=== PATIENT | male | born 1940 | race Caucasian/White ===

== ENCOUNTER 2024-04-17 13:46 | Inpatient (IN) | payer MEDICARE ==
[~2024-04-17] VITALS: Ht 170.2 cm; Wt 68.7 kg
[~2024-04-17 13:46] MED LIST: AMLODIPINE BESY10 MG PO; ATORVASTATIN CA20 MG PO; Atarax10 MG PO; BUSPIRONE HCL7.5 M6 PO; ESCI20 PO; FAMO20 PO; FURO20 PO; GABA100 PO; KLOR-CON 1010 ME9 PO; METOPROLOL SUCC25 MG PO; OXYC10TA19 PO; PLAVIX75 MG PO; PROZAC2010 PO; TRAZ100 PO
[2024-04-17 14:33] LABS: BASOPHILS ABSOLUTE AUTO 0.05 K/mm3 (0.00-0.23); BASOPHILS PERCENT AUTO 1 % (0-2); EOSINOPHILS ABSOLUTE AUTO 0.19 K/mm3 (0.00-0.68); EOSINOPHILS PERCENT AUTO 2 % (0-6); Hematocrit 42.3 % (37.0-53.0); Hemoglobin 13.6 g/dL (13.5-17.5); IMMATURE GRAN ABSOLUTE AUTO 0.03 K/mm3 (0.00-0.10); IMMATURE GRAN PERCENT AUTO 0 % (0-1); LYMPHOCYTES ABSOLUTE AUTO 2.01 K/mm3 (0.84-5.20); LYMPHOCYTES PERCENT AUTO 26 % (21-46); MONOCYTES ABSOLUTE AUTO 0.73 K/mm3 (0.16-1.47); MONOCYTES PERCENT AUTO 9 % (4-13); Mean Corpuscular HGB 30.2 pg (26.0-34.0); Mean Corpuscular HGB Conc 32.2 g/dL (31.5-36.5); Mean Corpuscular Volume 94 fL (80-100); Mean Platelet Volume 9.7 fL (9.1-12.4); NEUTROPHILS ABSOLUTE AUTO 4.79 K/mm3 (1.96-9.15); NEUTROPHILS PERCENT AUTO 61 % (41-73); Platelet Count 153 K/mm3 (150-400); RDW Coefficient Variation 14.5 % (11.7-14.2); RDW Standard Deviation 49.9 fL (35.1-46.3)
[2024-04-17 15:01] LABS: Albumin, Blood 3.4 g/dL (3.4-5.0); Albumin/Globulin Ratio 0.9 (0.8-1.8); Bilirubin, Total 0.5 mg/dL (0.1-1.0); Bun/Creatinine Ratio 21.2 (12.0-20.0); Calcium, Blood 8.2 mg/dL (8.5-10.1); Creatinine, Blood 1.04 mg/dL (0.60-1.20); Globulin, Blood 3.6 g/dL (2.2-4.0); Potassium, Blood 4.7 mmol/L (3.5-5.5)
[2024-04-17 17:56] LABS: Magnesium, Blood 2.1 mg/dL (1.6-2.4); Phosphorus, Blood 3.4 mg/dL (2.5-4.9)
[2024-04-17 18:53] LABS: International Normalized Ratio 1.02; Prothrombin Time Results 10.9 Sec (9.7-11.5)
[2024-04-17 19:43] LABS: Base Excess Venous 8.3 mmol/L; Bicarbonate Venous 29.7 mmol/L (24.0-30.0); PCO2 Venous 69.9 mmHg (38-42)
[2024-04-17] MEDS ORDERED: Ipratropium Bromide INH 0.02% 0.5 mg/2.5ML Vial INH SCH (19:45)
[2024-04-17] MEDS ORDERED: Albuterol 2.5 MG/3 ML VIAL INH SCH (19:45)
[2024-04-17] MEDS ORDERED: Bisacodyl 10 MG Supp PR PRN (20:15)
[2024-04-17] MEDS ORDERED: Acetaminophen 325 MG TABLET PO PRN (20:15)
[2024-04-17] MEDS ORDERED: Magnesium Hydroxide Conc 10 ML UDC PO PRN (20:20)
[2024-04-17] MEDS ORDERED: FLU VACC TS2024-25(6MOS UP)/PF 45 MCG/0.5 ML SYRINGE IM ONE (20:20)
[2024-04-17] MEDS ORDERED: TraZODone HCl 50 MG Tab PO PRN (20:25)
[2024-04-17] MEDS ORDERED: OxyCODONE HCL 5 MG TAB PO PRN (20:30)
[2024-04-17] MEDS ORDERED: LORazepam 2 MG/ML 1ML Injection IV ONE (21:00)
[2024-04-17] MEDS ORDERED: Docusate Sodium 100 MG Cap PO SCH (21:00)
[2024-04-17] MEDS ORDERED: Sennosides 8.6 MG Tab PO SCH (21:00)
[2024-04-17] MEDS ORDERED: Famotidine 20 MG Tab PO SCH (21:00)
[2024-04-17] MEDS ORDERED: LISI20 PO (22:54)
[2024-04-17 23:24] LABS: Base Excess Venous 10.7 mmol/L; PCO2 Venous 61.9 mmHg (38-42); pH Blood Venous 7.37 (7.34-7.37)
[2024-04-18] VITALS (10 sets, daily range): BP systolic 105–151; BP diastolic 45–89
--- NOTE | 2024-04-18 03:57 | NUR ---
AT MIDNIGHT PT REMOVED BIPAP MASK AND REQUESTED FOOD STATING "I HAVENT EATEN ALL DAY." PT ALSO C/O BACK PAIN. PT GIVEN SNACK AND PAIN MEDICATIONS FOR BACK PAIN. AT 0045 PT AMENABLE TO WEARING BIPAP MASK NOW. AT 0400 PT STILL WEARING BIPAP AND IS SLEEPING AND APPEARS RELAXED. VISIBLE RESPIRATIONS SEEN WNL.
--- NOTE | 2024-04-18 05:29 | NUR ---
PT WORE BIPAP FROM 44 TO 444 WHEN HE WOKE UP AND REMOVED MASK. PT WAS IRRITABLE UPON WAKING. PT O2 SAT STARTED TO DECLINE ONCE MASK WAS REMOVED PT PLACED ON 4L O2 BY IA AND IS NOW RESTING AGAIN. PT DECLINES TO WEAK MASK AT THIS TIME STATING "I NEED A BREAK FROM IT."
[2024-04-18 06:40] LABS: BASOPHILS ABSOLUTE AUTO 0.04 K/mm3 (0.00-0.23); BASOPHILS PERCENT AUTO 1 % (0-2); EOSINOPHILS PERCENT AUTO 3 % (0-6); Hemoglobin 12.9 g/dL (13.5-17.5); IMMATURE GRAN ABSOLUTE AUTO 0.02 K/mm3 (0.00-0.10); IMMATURE GRAN PERCENT AUTO 0 % (0-1); LYMPHOCYTES ABSOLUTE AUTO 1.31 K/mm3 (0.84-5.20); LYMPHOCYTES PERCENT AUTO 20 % (21-46); MONOCYTES ABSOLUTE AUTO 0.65 K/mm3 (0.16-1.47); MONOCYTES PERCENT AUTO 10 % (4-13); Mean Corpuscular HGB 30.9 pg (26.0-34.0); Mean Corpuscular HGB Conc 33.1 g/dL (31.5-36.5); Mean Corpuscular Volume 94 fL (80-100); Mean Platelet Volume 9.1 fL (9.1-12.4); NEUTROPHILS ABSOLUTE AUTO 4.21 K/mm3 (1.96-9.15); NEUTROPHILS PERCENT AUTO 66 % (41-73); Platelet Count 144 K/mm3 (150-400); RDW Coefficient Variation 14.6 % (11.7-14.2); RDW Standard Deviation 50.4 fL (35.1-46.3); Red Blood Cell Count 4.17 M/mm3 (4.30-5.90); White Blood Cell Count 6.43 K/mm3 (4.00-11.30)
--- NOTE | 2024-04-18 06:57 | NUR ---
PT ON BIPAP FOR 4 HOURS THIS SHIFT AND TOLERATED WELL WHILE SLEEPING. PT NOW ON 4L O2 WHILE SLEEPING PT DECLINING TO WEAR BIPAP MASK AGAIN STATING "I WANT A BREAK FROM IT." PT ON ROOM AIR WHILE SLEEPING HAD O2 SATS OF 86% AND WAS PLACED ON 4L O2 TO BRING SATS TO 95%. PT HAD GOOD RELIEF OF BACK PAIN WITH OXYCODONE. PT ABLE TO USE CALL LIGHT AND MAKE NEEDS KNOWN. PT IS CURRENTLY RESISTANT TO MORE INVOLVED CARE OR MEDICATIONS. PT WAS GIVEN FOOD LAST NIGHT AFTER ADMIT AND THAT DID IMPROVE MOOD FOR A SHORT DURATION. PT IS ABLE TO ANSWER ORIENTATION QUESTIONS APPROPRIATELY BUT SEEMS TO HAVE AN ODD AFFECT. PT IS [place] AND WITHOUT HEARING AIDS AT THIS TIME. CAREGIVER TO BRING IN MED LIST TO COMPLETE.
[2024-04-18 07:11] LABS: Albumin, Blood 3.2 g/dL (3.4-5.0); Anion Gap 9 mmol/L (3-11); Blood Urea Nitrogen 21 mg/dL (8-24); Bun/Creatinine Ratio 21.4 (12.0-20.0); CO2, Blood 31 mmol/L (21-32); Calcium, Blood 8.2 mg/dL (8.5-10.1); Chloride, Blood 107 mmol/L (98-108); Creatinine, Blood 0.98 mg/dL (0.60-1.20); Glomerular Filtration Rate 76 (60-); Glucose, Blood 114 mg/dL (70-99); Phosphorus, Blood 4.2 mg/dL (2.5-4.9); Potassium, Blood 4.2 mmol/L (3.5-5.5); Sodium, Blood 143 mmol/L (136-145)
--- NOTE | 2024-04-18 07:38 | NUR ---
ASSUMED CARE AND RECEIVED REPORT AT 0700. PT RESTING COMFORTABLY IN BED. INITIALLY ON 4L NC AT 97%, TITRATED DOWN TO 2L NC AND NOW AT 95%. VITALS STABLE.
[2024-04-18] MEDS ORDERED: Citalopram Hydrobromide 20 MG Tab PO SCH ×2 (09:00)
[2024-04-18] MEDS ORDERED: Metoprolol Succinate 25 MG TABCR PO SCH ×2 (09:00)
[2024-04-18] MEDS ORDERED: AmLODIPine Besylate 5 MG Tab PO SCH ×2 (09:00)
[2024-04-18] MEDS ORDERED: Atorvastatin 40 MG Tab PO SCH (09:00)
[2024-04-18] MEDS ORDERED: Clopidogrel Bisulfate 75 MG Tab PO SCH (09:00)
[2024-04-18] MEDS ORDERED: Furosemide 40 MG Tab PO SCH ×2 (09:00)
[2024-04-18] MEDS ORDERED: Enoxaparin 40 MG/0.4 ML SYR SC SCH (09:00)
[2024-04-18] MEDS ORDERED: Metoprolol Tartrate 1 MG/ML 5 ML VIAL IV ONE (14:30)
[2024-04-18] MEDS ORDERED: Metoprolol Tartrate 5 ML IV ONE (14:32)
[2024-04-18] MEDS ORDERED: MELATONIN5 M1 PO (14:55)
[2024-04-18] MEDS ORDERED: Metoprolol Tartrate 25 MG Tab PO ONE (15:20)
--- NOTE | 2024-04-18 17:10 | NUR ---
INFORMED BY TELEMETRY THAT PATIENT WAS IN SUSTAINED TRIGEMINY. NOTIFIED DR LEDESMA. ORDERS FOLLOWED AND 2.5MG OF METOPROLOL TARTRATE GIVEN VIA IV PUSH. PT CONVERTED BACK TO NORMAL SINUS RHYTHM FOR A FEW SECONDS, BUT CONVERTED BACK INTO TRIGEMINY. DR LEDESMA NOTIFIED AND ORDERED 12.5MG METOPROLOL TARTRATE PO. PT REMAINS IN TRIGEMINY AT THIS TIME. WILL CONTINUE TO MONITOR.
--- NOTE | 2024-04-18 18:15 | NUR ---
SHIFT SUMMARY PT WAS ORIENTED THROUGHOUT SHIFT, BUT WAS VERY TIRED AND SPENT MOST OF THE DAY RESTING COMFORTABLY IN BED. PT VERBALIZED NEEDS AND OBEYS COMMANDS. PT WAS TITRATED DOWN ON OXYGEN AND TOLERATES ROOM AIR WHILE AWAKE WITH SATS IN THE 90'S, BUT WILL DESAT WHEN ASLEEP TO HIGH 80'S. PT WENT FROM RA AT TIMES TO 2L NC AT TIMES. PT MEDICATED FOR CHRONIC LOWER BACK PAIN PER SEP. SEE PREVIOUS NOTE REGARDING TRIGEMINY. PT IS NOT IN BIGEMINY, BUT IS ASYMPTOMATIC. CONTINUE TO MONITOR PER DR LEDESMA. CAREGIVER CAME BY THROUGHOUT THE DAY, SUPPLIED A MED LIST. SHE STATES THAT HE HASN'T BEEN SLEEPING WELL LATELY AND HAS BEEN HAVING TO SLEEP IN HIS RECLINER AT HOME. SHE STATES HE DOES NOT USE OXYGEN AT HOME BUT DOES USE BREATHE RIGHT STRIPS. WILL CONTINUE TO MONITOR AND GIVE REPORT TO ONCOMING RN.
[2024-04-19 01:06] VITALS: BP 126/66
[2024-04-19 04:14] VITALS: BP 132/66
[2024-04-19 04:53] LABS: Calcium, Blood 8.5 mg/dL (8.5-10.1); Potassium, Blood 4.5 mmol/L (3.5-5.5)
--- NOTE | 2024-04-19 06:21 | NUR ---
PT MEDICATED FOR 8 BACK PAIN, SEE SEP.
--- NOTE | 2024-04-19 06:45 | NUR ---
PT STABLE THROUGHOUT THE NIGHT. VITAL SIGNS REMAIN STABLE. PT REMAINS IN BIGEMINY WITH OCCASSIONAL TRIGEMENY RHYTHM. NO C/O CP OR SOB. PT REMAINS ON 2L O2 AND IS SATING WELL. PT HAS BEEN MEDICATED FOR BACK PAIN X2 WITH OXYCODE. PT CONTINUES TO DECLINE TO WEAR BIPAP. PT IS AOX4 WITH ODD AFFECT AND FORGETFULNESS. PT IS [place] W/O HEARING AIDS AT THIS TIME. PT WAS ABLE TO STAND FOR WEIGHT THIS AM AND APPEARED STEADY, NO C/O DIZZINESS OR LIGHTHEADEDNESS.
--- NOTE | 2024-04-19 07:00 | NUR ---
ASSUMED CARE AT 0700. RECEIVED REPORT FROM RECREATION AIDE RN. PT RESTING COMFORTABLY IN BED, VITALS STABLE,
[2024-04-19 07:31] VITALS: BP 122/56
--- NOTE | 2024-04-19 10:15 | NUR ---
PT BECOMING INCREASINGLY CONFUSED, DOES NOT KNOW WHY IS HE HERE, DOESN'T REMEMBER HOW LONG HE HAS BEEN HERE AND WANTS TO GO HOME. GO HOME. STATES THAT HE DOESN'T FEEL LIKE HE CAN TRUST ANYONE AND THAT HOSPITAL STAFF IS PLAYING GAMES WITH HIM. THIS RN REORIENTED HIM TO SITUATION, TIME, PLAN OF CARE, AND ASSURED HIM THAT STAFF WERE ALL WORKING TOWARDS THE GOAL OF IMPROVING HIS CARDIAC AND RESPIRATORY FUNCTION SO THAT HE MAY RETURN HOME SAFELY.
[2024-04-19 11:44] VITALS: BP 120/58
--- NOTE | 2024-04-19 12:39 | NUR ---
Jeep Mechanic Dr. Richard at the bedside. States that he is increasing the pt's beta jolly due to persistent bigeminy/trigeminy. States as long as pt is asymptomatic, no contraindication for pt to have activity.
[2024-04-19] MEDS ORDERED: Furosemide 20 MG Tab PO ONE (14:00)
[2024-04-19 17:00] VITALS: BP 108/62
[2024-04-19] MEDS ORDERED: Metoprolol Succinate 50 MG TABCR PO SCH (17:00)
--- NOTE | 2024-04-19 19:15 | NUR ---
SHIFT SUMMARY PT ALERT AND ORIENTED TO SELF AND PLACE AT ALL TIMES, BUT ORIENTATION TO SITUATION AND TIME WAXED AND WANED. PT BECAME AGITATED VARIOUS TIMES THROUGHOUT THE DAY AND EXPRESSED HIS DESIRE TO LEAVE AND GO HOME. SPOKE WITH SON ON THE PHONE AND HE BELIEVES HIS FATHER MAY BE GETTING DEMENTIA AND HAS BECOME INCREASINGLY MORE FORGETFUL AND AGITATED OVER THE LAST FEW MONTHS. DR LAWSON ORDERED A MENTAL EVAL WITH OCCUPATIONAL THERAPY TO BE COMPLETED TOMORROW. OVERNIGHT SLEEP STUDY TO BE PERFORMED TONIGHT TO DETERMINE NEED FOR CPAP AT HOME. HOME O2 EVAL COMPLETED TODAY AND RT IS RECOMMENDING 2L AT REST AT HOME. PT REQUESTED PAIN MEDICATION ONE TIME DURING THIS SHIFT FOR CHRONIC LOWER BACK PAIN AND WAS TREATED PER SEP.
[2024-04-19 20:45] VITALS: BP 120/58
--- NOTE | 2024-04-19 22:53 | NUR ---
TRANSFER OF CARE PATIENT HAD CALLED AND ASKED FOR PAIN MEDICATION STATING HIS BACK WAS ACHING AND PAINFUL AT 10/10 PAIN. THIS RN ATTEMPTED TO GIVE THE PATIENT TYLENOL AND TRAZADONE TO SEE IF IT WOULD HELP HIM RELAX AND FALL ASLEEP. PATIENT CLAIMED THAT HE IS UNABLE TO TAKE TYLENOL IT MAKES HIM SICK AND THAT HE WANTED HIS OXYCODONE. THIS RN TRIED TOOK THE TYLENOL AWAY AND TO EXPLAIN THAT THE PATIENT HAD ALREADY RECEIVED THE OXYCODONE THIS EVENING AND THAT IT WOULD BE SEVERAL HOURS BEFORE IT COULD BE GIVEN AGAIN. THE PATIENT SAID THAT THE OXYCODONE ONLY LASTS HALF AN HOUR AND DEMANDED TO HAVE IT AGAIN. THIS RN AGAIN EXPLAINED THAT SHE HAD TO FOLLOW DR'S ORDERS AND THAT IT WAS NOT POSSIBLE FOR HIM TO HAVE THE OXYCODONE. THE PATIENT THEN DEMANDED TO SPEAK WITH THE DOCTOR OR A DIFFERENT NURSE AND TOOK THE TRAZADONE. IT RISK AND ASSURANCE SENIOR MANAGER SAIGE NOTIFIED AND PATIENT REQUESTED TO HAVE A DIFFERENT NURSE CARING FOR HIM. REPORT GIVEN TO REESE BECK FOR ASSUMPTION OF CARE.
--- NOTE | 2024-04-20 00:50 | NUR ---
ASSUMED CARE OF PT PARTIALLY INTO SHIFT. SLEEP STUDY IN PROGRESS.
[2024-04-20 05:03] VITALS: BP 124/56
[2024-04-20] MEDS ORDERED: Torsemide 10 MG TAB PO SCH (06:00)
--- NOTE | 2024-04-20 06:11 | NUR ---
SHIFT SUMMARY NEURO: A/OX4. MOVES ALL EXTREMETIES. PSYCHOSOCIAL CONCERNS. CARDIAC: HR TRENDING TOWARS 70'S. EKG COMPLETED. BLE EDEMA. LUNGS: ON 2L NC THROUGHOUT THE NIGHT. SLEEP STUDY COMPLETED. PT EXPRESSES CARE CONCERNS WITH STAFF. RN AND PT DISCUSSED THERAPEUTIC COMMUNICATION AND CONFLICT RESOLUTION. PT AGREEABLE AT THIS TIME.
[2024-04-20 07:50] VITALS: BP 134/53
--- NOTE | 2024-04-20 08:30 | NUR ---
PATIENT COMMUNICATION WITTNESSED AT A 2ND RN FOR THE AMA PAPERWORK. PT REFUSED TO SIGN. IV REMOVED FROM R HAND.
--- NOTE | 2024-04-20 08:59 | NUR ---
THIS RN WAS NOTIFIED BY BREAK NURSE THAT PT LEFT AMA AT APPROX 0830.
--- NOTE | 2024-04-20 09:00 | NUR ---
IN HALLWAY WHEN HEARD PT YELLING AT DR. LAWSON WHO WAS IN ROOM WITH PT. PT STATING IS LEAVING BECAUSE "NO BODY IS DOING ANYTHING". ATTEMPTED TO SPEAK WITH PT, WHO THEN CONTINUED TO YELL AT THIS RN DEMANDING HIS BELONGINGS. AMA PAPERWORK EXPLAINED TO PT, REFUSED TO SIGN. STATES MULTIPLE TIMES "I'M NOT SIGNING YOUR PAPERWORK BECAUSE YOU DIDN'T HELP ME". VERBALIZES UNDERSTANDING RISKS OF LEAVING INCLUDING POSSIBLE , STATES WILL GO SOMEWHERE WHERE THEY KNOW SOMETHING. PERSONAL CELL PHONE GIVEN TO PT. OBSERVED PT ON PHONE WITH CAREGIVER STATING HE WAS LEAVING. A FEW MINUTES LATER WHILE PT STILL IN ROOM CAREGIVER CALLS. EXPLAINED AMA PROCESS AND THAT WERE UNABLE TO HOLD PATIENT AGAINST HIS WILL. CAREGIVER CONCERNED NOT AT BASELINE. ASKED CAREGIVER TO COME IN TO ATTEMPT TO DESCALATE, BLOWER FEEDER DYED RAW STOCK KAE STATES SHE IS ON HER WAY TO [place] AND CANNOT COME IN. WHILE STILL ON PHONE WITH JUSTUS SON CALLS AND SPEAKS TO RELIEF INSTALLATIONS INSPECTOR WHO ALSO EXPLAINS AMA PROCESS. PT DRESSES SELF AND AMBULATES FROM UNIT WITH PERSONAL BELONGINGS WITH STEADY GAIT. NURSING CREATIVE CONSULTANT UPDATED.
[2024-04-20] MEDS ORDERED: NEURONTIN300 MG PO (22:38)
[2024-04-20] MEDS ORDERED: GABA100 PO (22:38)
[2024-04-20] MEDS ORDERED: PROZAC2010 (23:24)
[2024-04-20] MEDS ORDERED: NEURONTIN300 MG (23:24)
[2024-04-20] MEDS ORDERED: KLOR-CON 1010 ME9 (23:24)
[2024-04-21] MEDS ORDERED: Torsemide 20 MG TAB PO SCH (09:00)
== END 2024-04-20 09:00 | disposition left against medical advice (07) | DRG 189 ==
LOC: ER 13:46 → PCU 20:14
PROVIDERS: Emergency Medicine; Family Medicine; Internal Medicine; Student in an Organized Health Care Education/Training Program; ADMIT Student in an Organized Health Care Education/Training Program
PROC: 5A09357 Assistance with Respiratory Ventilation, Less than 24 Consecutive Hours, Continuous Positive Airway Pressure (ICD-10-PCS; principal; 2024-04-17)
DX: J96.01 Acute respiratory failure with hypoxia (principal); I44.0 Atrioventricular block, first degree; J96.02 Acute respiratory failure with hypercapnia; I25.10 Atherosclerotic heart disease of native coronary artery without angina pectoris; G89.29 Other chronic pain; M54.9 Dorsalgia, unspecified; Z95.2 Presence of prosthetic heart valve; I10 Essential (primary) hypertension; Z88.2 Allergy status to sulfonamides; Z88.0 Allergy status to penicillin; Z95.5 Presence of coronary angioplasty implant and graft; E78.5 Hyperlipidemia, unspecified; E66.9 Obesity, unspecified; Z68.38 Body mass index [BMI] 38.0-38.9, adult; Z87.891 Personal history of nicotine dependence; Z79.899 Other long term (current) drug therapy; Z79.02 Long term (current) use of antithrombotics/antiplatelets
CPT/HCPCS: 36415; 71046; 80048; 80053; 80069; 82330; 82803; 83735; 83880; 83970; 84100; 84484; 85025; 85610; 93005; 93010; 93306; 94644; 94660; 94664; 94761; 94762; 99285-25; A9270; J1650; J2060

== ENCOUNTER 2024-04-20 14:27 | Inpatient (IN) | payer MEDICARE ==
[~2024-04-20] VITALS: Ht 203.2 cm; Wt 99.8 kg
[~2024-04-20 14:27] MED LIST changes: +LISI20 PO; +MELATONIN5 M1 PO
[2024-04-20 15:06] LABS: BASOPHILS ABSOLUTE AUTO 0.04 K/mm3 (0.00-0.23); BASOPHILS PERCENT AUTO 0 % (0-2); EOSINOPHILS ABSOLUTE AUTO 0.03 K/mm3 (0.00-0.68); EOSINOPHILS PERCENT AUTO 0 % (0-6); Hematocrit 38.8 % (37.0-53.0); IMMATURE GRAN ABSOLUTE AUTO 0.03 K/mm3 (0.00-0.10); IMMATURE GRAN PERCENT AUTO 0 % (0-1); LYMPHOCYTES PERCENT AUTO 11 % (21-46); MONOCYTES PERCENT AUTO 9 % (4-13); Mean Corpuscular HGB 30.7 pg (26.0-34.0); Mean Corpuscular HGB Conc 33.5 g/dL (31.5-36.5); Mean Corpuscular Volume 92 fL (80-100); Mean Platelet Volume 9.7 fL (9.1-12.4); NEUTROPHILS ABSOLUTE AUTO 8.15 K/mm3 (1.96-9.15); NEUTROPHILS PERCENT AUTO 80 % (41-73); Platelet Count 148 K/mm3 (150-400); RDW Coefficient Variation 13.8 % (11.7-14.2); RDW Standard Deviation 46.9 fL (35.1-46.3); Red Blood Cell Count 4.23 M/mm3 (4.30-5.90); White Blood Cell Count 10.25 K/mm3 (4.00-11.30)
[2024-04-20 15:08] LABS: Base Excess Venous 14.7 mmol/L; Bicarbonate Venous 35.3 mmol/L (24.0-30.0); PCO2 Venous 59.3 mmHg (38-42); pH Blood Venous 7.43 (7.34-7.37)
[2024-04-20 15:28] LABS: Albumin, Blood 3.5 g/dL (3.4-5.0); Albumin/Globulin Ratio 0.9 (0.8-1.8); Bilirubin, Total 0.8 mg/dL (0.1-1.0); Bun/Creatinine Ratio 19.5 (12.0-20.0); Calcium, Blood 8.7 mg/dL (8.5-10.1); Creatinine, Blood 1.18 mg/dL (0.60-1.20); Globulin, Blood 3.7 g/dL (2.2-4.0); Potassium, Blood 3.9 mmol/L (3.5-5.5); Total Protein, Blood 7.2 g/dL (6.4-8.2)
[2024-04-20] MEDS ORDERED: Acetaminophen 500 MG Tab PO PRN (16:10)
[2024-04-20] MEDS ORDERED: FLU VACC TS2024-25(6MOS UP)/PF 45 MCG/0.5 ML SYRINGE IM SCH (16:10)
[2024-04-20] MEDS ORDERED: Polyethylene Glycol 3350 17 gm PO PRN (16:10)
[2024-04-20] MEDS ORDERED: OxyCODONE HCL 5 MG TAB PO PRN ×2 (16:10→19:45)
[2024-04-20] MEDS ORDERED: Haloperidol Lactate Inj. 5 MG/ML Injection IM ONE (18:40)
[2024-04-20] MEDS ORDERED: QUEtiapine Fumarate 25 MG Tab PO PRN (19:45)
[2024-04-20] MEDS ORDERED: Metoprolol Succinate 50 MG TABCR PO SCH (21:00)
[2024-04-20] MEDS ORDERED: Docusate Sodium/Senna 1 Tab PO SCH (21:00)
[2024-04-20 21:26] VITALS: BP 126/53
[2024-04-20] MEDS ORDERED: GABA100 PO (22:38)
[2024-04-20] MEDS ORDERED: NEURONTIN300 MG PO (22:38)
[2024-04-20] MEDS ORDERED: PROZAC2010 PO (22:39)
[2024-04-20] MEDS ORDERED: BUSPIRONE HCL7.5 M6 PO (22:40)
[2024-04-20] MEDS ORDERED: PLAVIX75 MG PO (23:24)
[2024-04-20] MEDS ORDERED: NEURONTIN300 MG (23:24)
[2024-04-20] MEDS ORDERED: PROZAC2010 (23:24)
[2024-04-20] MEDS ORDERED: KLOR-CON 1010 ME9 (23:24)
[2024-04-21 03:25] VITALS: BP 147/93
--- NOTE | 2024-04-21 04:23 | NUR ---
SHIFT SUMMARY PT ADMITTED FROM ED. CONFUSED TO WHY HE IS IN HOSPITAL. PT IS [place] AND WEARS HEARING AIDS AT BL. CHEST XRAY SHOWED POSSIBLE PNA. NO TREATMENT PLAN FOR THIS HOWEVER. PATIENT PLEASANT AND COOPERATIVE WITH CARE, AND CURRENTLY SLEEPING PEACEFULLY. STATED HE HASN'T HAD A BM "FOR ABOUT A WEEK. MAYBE LONGER." MEDICATING WITH STOOL SOFTENERS PER SEP.
[2024-04-21 07:22] VITALS: BP 125/73
[2024-04-21] MEDS ORDERED: Torsemide 20 MG TAB PO SCH (09:00)
[2024-04-21] MEDS ORDERED: Aspirin 81 MG Chew PO SCH (09:00)
[2024-04-21 09:13] LABS: Hematocrit 40.4 % (37.0-53.0); Hemoglobin 13.2 g/dL (13.5-17.5); Mean Corpuscular HGB 30.3 pg (26.0-34.0); Mean Corpuscular HGB Conc 32.7 g/dL (31.5-36.5); Mean Corpuscular Volume 93 fL (80-100); Mean Platelet Volume 10.1 fL (9.1-12.4); Platelet Count 135 K/mm3 (150-400); RDW Coefficient Variation 13.9 % (11.7-14.2); RDW Standard Deviation 47.5 fL (35.1-46.3); Red Blood Cell Count 4.36 M/mm3 (4.30-5.90); White Blood Cell Count 7.77 K/mm3 (4.00-11.30)
[2024-04-21 09:33] LABS: Albumin, Blood 3.2 g/dL (3.4-5.0); Anion Gap 9 mmol/L (3-11); Blood Urea Nitrogen 21 mg/dL (8-24); Bun/Creatinine Ratio 24.6 (12.0-20.0); CO2, Blood 36 mmol/L (21-32); Calcium, Blood 8.8 mg/dL (8.5-10.1); Chloride, Blood 99 mmol/L (98-108); Creatinine, Blood 0.85 mg/dL (0.60-1.20); Glomerular Filtration Rate 85 (60-); Glucose, Blood 105 mg/dL (70-99); Magnesium, Blood 1.9 mg/dL (1.6-2.4); Potassium, Blood 3.8 mmol/L (3.5-5.5); Sodium, Blood 140 mmol/L (136-145)
[2024-04-21] MEDS ORDERED: FentaNYL 12 MCG/HR Patch TOP SCH (11:45)
[2024-04-21 14:50] VITALS: BP 137/58
--- NOTE | 2024-04-21 17:47 | NUR ---
SHIFT SUMMARY PT RESTING QUIETLY AT START OF SHIFT. WOKE EASILY FOR CARE. UP TO BTHRM NEEDED TO VOID AND HAVE EXTRA LRG BM. PT SOMETIMES CALLS FOR ASSIST. BED AND CHAIR ALARMS USED FOR SAFETY. PT MEDICATED FOR C/O PAIN TO BACK, NECK, AND HEAD THRU OUT THE DAY. DR LAWSON IN TO SEE PT THIS MORNING. NEW ORDERS PLACED. PT TAKEN DOWN VIA W/C FOR CT. FENTANYL PATCH PLACED PER EMAR. PT'S SON CALLED FOR UPDATES AT LEAST TWICE. DIAMOND SIZER IN THIS AFTERNOON TO SEE PT AND REPORT THAT SHE IS WORKING ON MORE CARE AT HOME FOR PT, HOPING TO D/C IN AM. PT ABLE TO WORK WITH THERAPY FOR A WHILE. PT UP TO CHAIR SEVERAL TIMES. CURRENTLY JUST GOING BACK TO BED TO REST. CALL LT IN REACH. BED ALARM ON FOR SAFETY.
[2024-04-21 19:27] VITALS: BP 135/55
[2024-04-22 02:50] VITALS: BP 153/88
--- NOTE | 2024-04-22 04:27 | NUR ---
SHIFT SUMMARY: PT IS A 84 YO FULL CODE MAN WHO WAS ADMITTED FOR "COGNITIVE SAFETY ISSUE". PT IS ON TELE AND HAS A 1ST DEG BLOCK WITH PVC'S. PT CAN BE FORGETFUL AND IS IN PAIN OFTEN, ESPECIALLY BACKPAIN (SEE EMAR FOR PAIN MEDS). FENTANYL PATCH WAS PLACED 04/21/24 (SEE EMAR) ON THE BACK OF THE NECK/BACK. PT IS A FWW ONE ASSIST TO THE BATHROOM AND ALSO USES THE URINAL AT TIMES. PT CAN BE [place]ITINA AND GRUMPY AT TIMES TOWARDS STAFF.PT IS ON OXYGEN IN ROOM ON 2L. PT HAS BED ALARM SET BECAUSE HE SOMETIMES IS CONFUSED AND DOES NOT ALWAYS USE CALL LIGHT. PT SON "HERIBERTO" WAS IN THE ROOM AT THE BEGINNING OF SHIFT. PT WAS BROUGHT A RECLINER INTO THE ROOM FOR COMFORT BUT HE HAS NOT USED IT YET. PT SEEMS TO HAVE TROUBLE URINATING AND CAN TAKE HIM A LONG TIME TO BE ABLE TO URINATE AND HAS TROUBLE PLACING HIS PENIS INSIDE THE URINAL AT TIMES. MEPILEX WAS PLACED IN SACRAL COCCYX AREA BECAUSE OF SLIGHT BRUISING STARTING. PT WAS ALSO REPOSITIONED ON R SIDE FOR COMFORT. CALL LIGHT IN REACH AND PT NOW RESTING.
[2024-04-22 07:15] VITALS: BP 127/70
[2024-04-22] MEDS ORDERED: TORSE20 PO (16:17)
[2024-04-22] MEDS ORDERED: FENTANYL1 EA12 TOP (16:19)
--- NOTE | 2024-04-22 18:30 | NUR ---
DISCHARGE SUMMARY PATIENT DISCHARGED TO THE CARE OF HERIBERTO (SON). IV REMOVED PRIOR WITHOUT COMPLICATIONS. DISCHARGE PACKET GIVEN AND REVIEWED WITH SON, PATIENT DID NOT WANT TO PARTICIPATE IN DISCHARGE, KEPT STATING HE WOULD RATHER THAN LISTENT TO ME. DME DELIVERED TO ROOM, OXYGEN AND WALKER. PATIENT STATED MULTIPLE TIMES THAT HE IS NOT GOING TO WEAR OXYGEN AT HOME. EDUCATION PROVIDED AND ENCOURAGED TO ADHERE TO DISCHARGE INSTRUCTIONS. HARD SCRIPT PROVIDED FOR FENTANYL PATCH, OTHER MEDS FAXED TO [facility]. FENTANYL PATCH REMOVED PER PATIENT REQUEST ON DISCHARGE, EDUCATION PROVIDED, PATIENT INSISTENT ON REMOVAL.
== END 2024-04-22 17:35 | disposition home health service (06) | DRG 189 ==
LOC: ER 14:27 → MEDS 16:05
PROVIDERS: Emergency Medicine; ADMIT Internal Medicine
DX: J96.01 Acute respiratory failure with hypoxia (principal); J96.02 Acute respiratory failure with hypercapnia; I25.10 Atherosclerotic heart disease of native coronary artery without angina pectoris; M54.9 Dorsalgia, unspecified; G89.29 Other chronic pain; I10 Essential (primary) hypertension; G30.9 Alzheimer's disease, unspecified; F02.80 Dementia in other diseases classified elsewhere, unspecified severity, without behavioral disturbance, psychotic disturbance, mood disturbance, and anxiety; I44.0 Atrioventricular block, first degree; Z88.2 Allergy status to sulfonamides; Z88.0 Allergy status to penicillin; Z79.02 Long term (current) use of antithrombotics/antiplatelets; Z79.899 Other long term (current) drug therapy; Z95.5 Presence of coronary angioplasty implant and graft; Z98.890 Other specified postprocedural states; Z79.891 Long term (current) use of opiate analgesic; Z79.811 Long term (current) use of aromatase inhibitors
CPT/HCPCS: 36415; 70450; 71045; 80053; 80069; 82140; 82803; 83735; 85025; 85027; 93005; 93010; 94760; 94761; 97110; 97129; 97161; 97165; 97530; 99285-25; A9270; J1630